=== PATIENT | female | born 1970 | race Two or more races ===

== ENCOUNTER 2022-08-11 08:15 | Inpatient (IN) | payer OTHER ==
[~2022-08-11] VITALS: Ht 162.6 cm; Wt 84.4 kg
== END 2022-08-25 09:26 | disposition home or self-care (01) | DRG 737 ==
LOC: SURH 08-14 08:15 → SURG 08-21 12:20 → O/R 08-21 12:20 → SURH 08-21 23:30 → SURG 08-22 02:09 → OB/GYN 08-22 19:19
PROVIDERS: Surgery; ADMIT Obstetrics & Gynecology Gynecologic Oncology; ATTEND Obstetrics & Gynecology Gynecologic Oncology
PROC: 0DBW0ZZ Excision of Peritoneum, Open Approach (ICD-10-PCS; 2022-08-21)
PROC: 0UT70ZZ Resection of Bilateral Fallopian Tubes, Open Approach (ICD-10-PCS; 2022-08-21)
PROC: 07BC0ZZ Excision of Pelvis Lymphatic, Open Approach (ICD-10-PCS; 2022-08-21)
PROC: 0WBF0ZZ Excision of Abdominal Wall, Open Approach (ICD-10-PCS; 2022-08-21)
PROC: 0DBU0ZZ Excision of Omentum, Open Approach (ICD-10-PCS; 2022-08-21)
PROC: 0WQF0ZZ Repair Abdominal Wall, Open Approach (ICD-10-PCS; 2022-08-21)
PROC: 0KRL07Z Replacement of Left Abdomen Muscle with Autologous Tissue Substitute, Open Approach (ICD-10-PCS; 2022-08-21)
PROC: 0KRK07Z Replacement of Right Abdomen Muscle with Autologous Tissue Substitute, Open Approach (ICD-10-PCS; 2022-08-21)
PROC: 3E1M38Z Irrigation of Peritoneal Cavity using Irrigating Substance, Percutaneous Approach (ICD-10-PCS; 2022-08-21)
PROC: 0UT20ZZ Resection of Bilateral Ovaries, Open Approach (ICD-10-PCS; principal; 2022-08-21 23:30)
PROC: 0UT90ZZ Resection of Uterus, Open Approach (ICD-10-PCS; 2022-08-21 23:30)
PROC: 3E0F7GC Introduction of Other Therapeutic Substance into Respiratory Tract, Via Natural or Artificial Opening (ICD-10-PCS; 2022-08-22)
DX: C56.3 Malignant neoplasm of bilateral ovaries (principal); C79.89 Secondary malignant neoplasm of other specified sites; K42.0 Umbilical hernia with obstruction, without gangrene; N84.0 Polyp of corpus uteri; Z20.822 Contact with and (suspected) exposure to COVID-19